=== PATIENT | female | born 1960 | race Caucasian/White ===

== ENCOUNTER 2021-07-24 09:48 | Inpatient (IN) | payer OTHER, SELFPAY ==
--- NOTE | ~2021-07-24 | CT_ITS ---
EXAMINATION: CT SCAN OF THE LEFT HAND WITH CONTRAST CLINICAL INFORMATION: Cat bite. Evaluate for fluid collection. Left hand swelling. COMPARISON: None. TECHNIQUE: CT scan left hand was performed with contrast. 85 mL of Omnipaque 350 given intravenously. Reconstruction imaging performed at the acquisition workstation. DLP: 189 mGy-cm2. FINDINGS: The bones, joints and soft tissues are normal. I do not see a fluid collection. CT/CT hand LT w con IMPRESSION: Normal CT scan of the left hand. I do not see a fluid collection.
--- NOTE | ~2021-07-24 | XR_ITS ---
EXAMINATION: XR HAND, LEFT CLINICAL INFORMATION: Left hand pain status post cat bite. COMPARISON: None TECHNIQUE: PA, lateral, and oblique views of the left hand. FINDINGS: There is no acute fracture or dislocation. The joint spaces are unremarkable. The carpal bones are normally aligned. The distal radius and ulna are intact. Mild soft tissue swelling surrounds the base of the first digit without radiopaque foreign body. XR/XR hand LT 2V IMPRESSION: Mild soft tissue swelling at the base of the first digit without radiopaque foreign body. No acute osseous abnormality.
[2021-07-24 09:51] VITALS: BP 148/51; PULSE 85; RESP 16; TEMP 36.7; O2SAT 95; BMI 28.3
--- NOTE | 2021-07-24 10:18 | ED.SKABFB ---
HPI - Skin/Abscess/Foreign Bdy General Chief complaint: Skin/Abscess/Foreign Body Stated complaint: cat bite - hand infection Time Seen by Provider: 07/24/21 10:07 Source: patient Mode of arrival: ambulatory Limitations: no limitations History of Present Illness HPI narrative: 60-year-old female with a history of left breast cancer status post mastectomy here with reports of left hand swelling, redness and pain. Patient tells me that she was bit by her daughter's cat yesterday on the left hand. She is right hand dominant. She tells me that CaT is up-to-date with her rabies vaccination. The patient was seen and yesterday at outpatient facility. Her tetanus status was updated. She was started on Augmentin. Patient took 2 doses of Augmentin. Today when she woke up she reported increased pain, swelling, streaking up the arm. Patient tells me that she has had subjective fevers, chills and nausea. Related Data Home Medications Medication Instructions Recorded Confirmed amoxicillin 875 mg-potassium 1 tab PO BID 07/24/21 07/24/21 clavulanate 125 mg tablet cholecalciferol (vitamin D3) 25 25 mcg PO DAILY 07/24/21 07/24/21 mcg (1,000 unit) tablet famotidine 20 mg tablet (Pepcid) 20 mg PO DAILY 07/24/21 07/24/21 Allergies Allergy/AdvReac Type Severity Reaction Status Date / Time levofloxacin [From Levaquin] Allergy Rash Verified 07/24/21 10:34 meperidine [From Demerol] Allergy Unknown Verified 07/24/21 10:35 Penicillins Allergy Rash Verified 07/24/21 10:35 Review of Systems Review of Systems: Yes all other systems are reviewed and are negative Constitutional: Constitutional: Reports no additional constitutional complaints, Reports chills, Reports fever(s) (Subjective), Denies headache(s) and Denies weakness Eyes: Eyes: Reports no additional eye complaints and Denies change in vision ENT: Reports system reviewed and no additional complaints, except as documented, Denies dizziness, Denies headache(s), Denies nasal congestion, Denies nasal discharge and Denies neck pain Cardiovascular: Cardiovascular: Reports no additional cardiovascular complaints, Denies chest pain, Denies leg edema and Denies dyspnea Respiratory: Respiratory: Reports no additional respiratory complaints, Denies cough and Denies dyspnea Gastrointestinal: Gastrointestinal: Reports no additional gastrointestinal complaints, Denies abdominal pain, Denies diarrhea, Reports nausea and Denies vomiting Genitourinary: Genitourinary: Reports no additional female genitourinary complaints and Denies urinary incontinence Musculoskeletal: Musculoskeletal: Reports no additional musculoskeletal complaints, Denies back pain, Denies arthralgias, Denies joint swelling, Denies neck pain, Denies numbness and Denies tingling Integumentary/Breasts: Skin/Breast: Reports system reviewed and no additional complaints, except as docu, Reports swelling, Reports erythema and Denies rash Neurologic: Reports system reviewed and no additional complaints, except as documented, Denies Abnormal speech present, Denies dizziness, Denies headache(s), Denies numbness, Denies tingling and Denies weakness PMFSH Past Medical History Attestation statement: The following information was validated with the patient. Source: old records reviewed and nursing notes reviewed Social History Social History Advance Directives: No Advance Directives Information Provided: No Physical Exam Vital Signs: Vital Signs: Last Vital Signs Temp 98.1 F 07/24/21 09:51 Pulse 63 07/24/21 12:45 Resp 12 07/24/21 12:45 BP 116/60 07/24/21 12:45 Pulse Ox 97 07/24/21 12:45 O2 Del Method 07/24/21 12:45 BMI result Body Mass Index 28.3 Const: General: cooperative, healthy appearing, comfortable and no acute distress Orientation/consciousness: patient oriented x3 Limitations: no limitations HEENT: Head: Yes normal to inspection Ears: hearing grossly normal bilaterally General nose exam: Normal external nose present Face and sinus: Yes normal facial exam Mouth: Normal oral and palatal mucosa present Throat: Yes posterior oropharynx normal Eyes: General: appearance normal, both eyes and all related structures Pupils: Equal, round and reactive pupils present Neck: Neck: Yes normal visual inspection Chest: Chest palpation & inspection: normal inspection of the chest Resp: Effort & Inspection: normal respiratory effort Auscultation: clear to auscultation bilaterally Cardio: Rate: regular rate Rhythm: regular rhythm Peripheral pulses: Peripheral pulses 2+ throughout GI: Inspection: Yes normal to inspection Palpation (GI): Soft to palpation and nontender Auscultation: normal bowel sounds Back/Spine/Pelvis: Thoracic/Lumbar Spine: thoracic and lumbar spine normal to inspection Skin: General skin exam: no rashes or lesions noted Neuro: General: patient oriented x3, no focal motor deficits and normal sensation to monofilament Cranial nerves: Yes Equal, round and reactive pupils present Cognition (Neuro): normal cognition Speech: No Abnormal speech present Gait exam (Neuro): Normal gait present Motor exam (neuro): 5/5 motor strength present throughout Extrem: Other: There are abrasions noted to the dorsal and volar aspect of the left hand. There is warmth, redness, swelling of the hand. There is streaking up the volar aspect of the left arm. There is pain over the left axilla with no obvious lymphadenopathy. There is pain with passive extension of the 2nd and 3rd digits on the left hand. General: Yes normal to inspection Course Course Course Narrative: This is a 60-year-old female who had a cat bite to left hand yesterday. She has taken 2 doses of oral Augmentin but overnight has had tactile temperatures, chills, nausea and increasing swelling with redness and streaking up the arm today. She also has pain with passive extension of the 2nd and 3rd digits on the left hand. Patient has obvious cellulitis. There is also concern for tenosynovitis of the hand. Therefore I will obtain labs including blood cultures and lactic acid. Patient has a listed allergy to penicillin and describes this as a rash as a child. She has taken Augmentin with no difficulty. Therefore I have ordered Zosyn. Anticipate admission after discussion with orthopedic hand. At this time infection is suspected. Antibiotics ordered Reevaluation(s) Reevaluation #1: Reviewed labs which show leukocytosis, elevated CRP. X-ray of hand shows no acute foreign body I discussed the case with orthopedics [facility]. They will follow the patient during admission. Recommend continuing IV antibiotics. Call out to medicine to discuss for admission Time: 11:30 Reevaluation #2: Spoke to Dr. Siu. He accepted admission Time: 11:45 MDM - Skin/Abscess/Foreign Bdy MDM Narrative Medical decision making narrative: Tenosynovitis Differential Diagnosis Differential diagnosis: Likely cellulitis Medical Records Attestation: I reviewed the patient's medical records. Lab Data Attestation: I reviewed the patient's lab results. Result diagrams: 07/24/21 10:56 07/24/21 10:56 Labs: Lab Results 07/24/21 07/24/21 07/24/21 Range/Units 10:56 10:56 10:56 WBC 11.3 H (4.8-10.8) X10*3/uL RBC 4.50 (4.20-5.50) X10*6/uL Hgb 13.2 (12.0-16.0) g/dl Hct 39.2 (37.0-47.0) % MCV 87.1 (80.0-98.0) fL MCH 29.3 (27.0-33.0) pg MCHC 33.7 (31.0-35.0) g/dl RDW 13.1 (11.0-16.0) % Plt Count 215 (160-400) X10*3/uL MPV 10.8 (9.4-12.3) fL Immature Gran % (Auto) 0.3 (0.0-0.4) % Neut % (Auto) 69.2 (45-73) % Lymph % (Auto) 19.7 L (20-40) % [place] % (Auto) 10.2 (2-11) % Eos % (Auto) 0.3 (0-4) % Baso % (Auto) 0.3 (0-2) % Lymph # (Auto) 2.2 (1.2-4.9) X10*3/uL [place] # (Auto) 1.2 (0.1-1.2) X10*3/uL Eos # (Auto) 0.0 (0.0-0.4) X10*3/uL Baso # (Auto) 0.0 (0.0-0.2) X10*3/uL Abs Immat Gran (auto) 0.03 (0.00-0.03) X10*3/uL Absolute Neuts (auto) 7.8 (2.0-8.3) x10*3/uL Absolute Nucleated RBC 0.000 (0.0-0.012) X10*3/uL Nucleated RBC % (auto) 0.0 (0.0-0.2) /100WBC ESR 14 (0-20) MM/HR Sodium 139 (135-145) mmol/L Potassium 3.9 (3.3-5.1) mmol/L Chloride 106 (96-108) mmol/L Carbon Dioxide 23 (22-29) mmol/L Anion Gap 14 (12-20) BUN 12 (9-16) mg/dL Creatinine 0.86 (0.5-1.4) mg/dL Estim Creat Clear Calc 69.7 Estimated GFR > 60 Random Glucose 103 (60-115) mg/dL Lactic Acid (0.5-2.0) mmol/L Calcium 9.3 (8.4-10.2) mg/dL Total Bilirubin 0.6 (0.0-1.0) mg/dL Direct Bilirubin 0.2 (0.0-0.5) mg/dL AST 16 (5-31) U/L ALT 13 (0-31) U/L Alkaline Phosphatase 60 (39-117) U/L C-Reactive Protein 9.43 H (< or = 0.50) mg/dL Total Protein 7.0 (6.5-8.0) g/dL Albumin 4.3 (3.5-5.0) g/dL COVID-19 ([facility]) (Negative) COVID-19 Clin Com 07/24/21 07/24/21 Range/Units 10:56 10:56 WBC (4.8-10.8) X10*3/uL RBC (4.20-5.50) X10*6/uL Hgb (12.0-16.0) g/dl Hct (37.0-47.0) % MCV (80.0-98.0) fL MCH (27.0-33.0) pg MCHC (31.0-35.0) g/dl RDW (11.0-16.0) % Plt Count (160-400) X10*3/uL MPV (9.4-12.3) fL Immature Gran % (Auto) (0.0-0.4) % Neut % (Auto) (45-73) % Lymph % (Auto) (20-40) % [place] % (Auto) (2-11) % Eos % (Auto) (0-4) % Baso % (Auto) (0-2) % Lymph # (Auto) (1.2-4.9) X10*3/uL [place] # (Auto) (0.1-1.2) X10*3/uL Eos # (Auto) (0.0-0.4) X10*3/uL Baso # (Auto) (0.0-0.2) X10*3/uL Abs Immat Gran (auto) (0.00-0.03) X10*3/uL Absolute Neuts (auto) (2.0-8.3) x10*3/uL Absolute Nucleated RBC (0.0-0.012) X10*3/uL Nucleated RBC % (auto) (0.0-0.2) /100WBC ESR (0-20) MM/HR Sodium (135-145) mmol/L Potassium (3.3-5.1) mmol/L Chloride (96-108) mmol/L Carbon Dioxide (22-29) mmol/L Anion Gap (12-20) BUN (9-16) mg/dL Creatinine (0.5-1.4) mg/dL Estim Creat Clear Calc Estimated GFR Random Glucose (60-115) mg/dL Lactic Acid 0.6 (0.5-2.0) mmol/L Calcium (8.4-10.2) mg/dL Total Bilirubin (0.0-1.0) mg/dL Direct Bilirubin (0.0-0.5) mg/dL AST (5-31) U/L ALT (0-31) U/L Alkaline Phosphatase (39-117) U/L C-Reactive Protein (< or = 0.50) mg/dL Total Protein (6.5-8.0) g/dL Albumin (3.5-5.0) g/dL COVID-19 ([facility]) Negative (Negative) COVID-19 Clin Com See Note Imaging Data hand x-ray: Attestation: I personally reviewed and interpreted this imaging study as follows: Radiologist's impression: FINDINGS: There is no acute fracture or dislocation. The joint spaces are unremarkable. The carpal bones are normally aligned. The distal radius and ulna are intact. Mild soft tissue swelling surrounds the base of the first digit without radiopaque foreign body. XR/XR hand LT 2V IMPRESSION: Mild soft tissue swelling at the base of the first digit without radiopaque foreign body. No acute osseous abnormality. Discharge Plan Discharge Clinical Impression: Cellulitis Patient Disposition: Admitted As Inpatient
--- NOTE | 2021-07-24 10:48 | PHA.MEDREC ---
Pharmacy Consult ? Medication Reconciliation Pharmacy has completed the medication reconciliation.
--- NOTE | 2021-07-24 10:49 | PC.NURSE ---
pt moved to room 12 in ed for admission and cellulitis work up.
[2021-07-24 11:03] LABS: MANUAL DIFF FLAG NO
[2021-07-24 11:07] LABS: Basophils Percent Auto 0.3 % (0-2); Eosinophils Percent Auto 0.3 % (0-4); Hematocrit 39.2 % (37.0-47.0); Hemoglobin 13.2 g/dl (12.0-16.0); Imm Gran Abs Auto 0.03 X10*3/uL (0.00-0.03); Imm Gran Pct Auto 0.3 % (0.0-0.4); Lymphocytes Absolute Auto 2.2 X10*3/uL (1.2-4.9); Lymphocytes Percent Auto 19.7 % (20-40); Mean Corpuscular HGB Conc 33.7 g/dl (31.0-35.0); Mean Corpuscular Hemoglobin 29.3 pg (27.0-33.0); Mean Corpuscular Volume 87.1 fL (80.0-98.0); Mean Platelet Volume 10.8 fL (9.4-12.3); Monocytes Absolute Auto 1.2 X10*3/uL (0.1-1.2); Monocytes Percent Auto 10.2 % (2-11); Neutrophils Absolute Auto 7.8 x10*3/uL (2.0-8.3); Neutrophils Percent Auto 69.2 % (45-73); Platelet Count 215 X10*3/uL (160-400); Red Cell Distribution Width 13.1 % (11.0-16.0); White Blood Count 11.3 X10*3/uL (4.8-10.8)
[2021-07-24 11:16] LABS: Lactic Acid 0.6 mmol/L (0.5-2.0)
[2021-07-24 11:21] LABS: Alanine Aminotransferase 13 U/L (0-31); Albumin Level 4.3 g/dL (3.5-5.0); Alkaline Phosphatase 60 U/L (39-117); Anion Gap 14 (12-20); Aspartate Amino Transferase 16 U/L (5-31); Bilirubin Direct 0.2 mg/dL (0.0-0.5); Bilirubin Total 0.6 mg/dL (0.0-1.0); Blood Urea Nitrogen 12 mg/dL (9-16); C Reactive Protein 9.43 mg/dL (< or = 0.50); Calcium 9.3 mg/dL (8.4-10.2); Carbon Dioxide 23 mmol/L (22-29); Chloride 106 mmol/L (96-108); Creatinine Clr Calc Pharmacy 69.7; Estimated Glomerular Filt Rate > 60; Glucose Random 103 mg/dL (60-115); Potassium 3.9 mmol/L (3.3-5.1); Sodium 139 mmol/L (135-145)
[2021-07-24] MEDS: Ketorolac Tromethamine 30 MG/ML VIAL IVPUSH (11:22)
[2021-07-24] MEDS: Piperacillin Sodium/Tazobactam 3.375 GM in 0.9 % Sodium Chloride 50 ML IV ×3 (11:22→22:19)
[2021-07-24] MEDS: 0.9 % Sodium Chloride 1,000 ML 999 ML IV (11:23)
[2021-07-24 11:39] LABS: COVID-19 Test Negative (Negative); IDNOW Serial# 16C4AD1C
[2021-07-24 11:50] VITALS: BP 114/61; PULSE 64; RESP 13; O2SAT 95
[2021-07-24 11:50] LABS: Erythrocyte Sedimentation Rate 14 MM/HR (0-20)
[2021-07-24 11:52] VITALS: BP 114/61; PULSE 64; RESP 13; O2SAT 95
--- NOTE | 2021-07-24 12:05 | PHA.PROG ---
Addendum entered by Yamilex Da Silva ashley 07/24/21 14:20: DISREGARD TROUGH REPORTED OUT AT 1312. TT'S DOSE WAS HUNG AT 1230, VALUE IS NOT ACCURATE Original Note: Admission Date/Time: July 24, 2021 11:46 Indication: Skin Weight in k.843 kg Adjusted body weight in Kg: [place] body weight in Kg: Obesity Dosing Indication % IBW: Serum Creatinine - Last 168 Hours 07/24/21 10:56 Creatinine 0.86 Estimated CrCl and GFR - Last 168 Hours 07/24/21 10:56 Estim Creat Clear Calc 69.7 Estimated GFR > 60 Vancomycin Loading Dose: N/A Current Vancomycin Dosing Regimen: 1000mg Q12H Vancomycin Monitoring using AUC goal of 400 - 600 range with trough as surrogate marker: 570mg/L Date and Time for next Vancomycin Level to be drawn: 07/25/21 @2200 Pharmacist Comments on Vancomycin Plan: Dr. Siu will be monitoring as well and requested the 1000mg Q12H; will continue to monitor renal Vancomycin dosing will take advantage of [employer] as a clinical decision support tool that uses Bayesian modeling to calculate individual patient's pharmacokinetic parameters and forecast the patient's drug concentration time course with the target goal AUC 24 range of 400 - 600 mg/L/hr.
--- NOTE | 2021-07-24 12:15 | P.HPHOSP_ITS ---
History of Present Illness Date of Service: 07/24/21 Chief Complaint: cat bite 60-year-old female presents with pain and redness in her left hand this traveling upper arm secondary to a cat bite 48 hours prior to presentation. States she was seen in urgent care yesterday and received a dose of Augmentin however overnight became feverish and hand was worse this morning. She presented to the ER for further evaluation. ER evaluation demonstrated a white count of 11.3 and negative x-ray. She will be admitted for IV antibiotics secondary to failing outpatient therapies Review of Systems Review of Systems: denies chest pain Denies shortness of breath Denies nausea vomiting diarrhea Admits to fevers to 101 overnight PMFSH Social History Advance Directives: No Advance Directives Information Provided: No Meds Allergies Allergy/AdvReac Type Severity Reaction Status Date / Time levofloxacin [From Levaquin] Allergy Rash Verified 07/24/21 10:34 meperidine [From Demerol] Allergy Unknown Verified 07/24/21 10:35 Penicillins Allergy Rash Verified 07/24/21 10:35 Active Medications: Current Medications Acetaminophen (Acetaminophen 325 Mg Tablet) 650 mg PO Q6H PRN PRN Reason: Pain, Mild (Pain Scale 1-3) Enoxaparin Sodium (Enoxaparin Sodium 40 Mg/0.4 Ml Syringe) 40 mg SUBCUT Q24H KRIS Famotidine (Famotidine 20 Mg Tablet) 20 mg PO DAILY [facility] Piperacillin Sod/Tazobactam (Sod 3.375 gm/ Sodium Chloride) 50 mls @ 100 mls/hr IV Q6H KRIS Vancomycin HCl 1,000 mg/ (Sodium Chloride) 270 mls @ 270 mls/hr IV Q12H KRIS Melatonin (Melatonin 3 Mg Tablet) 3 mg PO BEDTIME PRN PRN Reason: Insomnia Oxycodone HCl (Oxycodone Hcl Immed Release 5 Mg Tablet) 5 mg PO Q6H PRN PRN Reason: Pain, Severe (Pain Scale 7-10) Pharmacy Consult (Consult Rx Perform Med Rec) 1 each MISCELLANE ONCE PRN PRN Reason: Consult order Sodium Chloride (0.9 % Sodium Chloride Flush 3 Ml Syringe) 3 ml IVFLUSH QSHIFT KRIS Vitamin D (Cholecalciferol (Vitamin D3) 25 Mcg Tablet) 25 mcg PO DAILY KRIS Home Medications Medication Instructions Recorded Confirmed Last Taken Type amoxicillin 875 mg-potassium 1 tab PO BID 07/24/21 07/24/21 07/24/21 History clavulanate 125 mg tablet cholecalciferol (vitamin D3) 25 25 mcg PO DAILY 07/24/21 07/24/21 07/23/21 History mcg (1,000 unit) tablet famotidine 20 mg tablet (Pepcid) 20 mg PO DAILY 07/24/21 07/24/21 07/23/21 History Physical Exam Vital Signs and Narrative: Vital Signs: Last Vital Signs Temp 98.1 F 07/24/21 09:51 Pulse 64 07/24/21 11:52 Resp 13 07/24/21 11:52 BP 114/61 07/24/21 11:52 Pulse Ox 95 07/24/21 11:52 O2 Del Method 07/24/21 11:52 BMI result Body Mass Index 28.3 Const: Other: awake alert uncomfortable lying in the stretcher Resp: Other: clear to auscultation bilaterally no rales rhonchi or wheezes Cardio: Other: no S4; positive S1-S2; no S3 murmurs rubs or gallops GI: Other: soft nontender nondistended with normoactive bowel sounds Extrem: Other: dorsum left hand erythematous warm to touch and edematous with erythema extending up the mid dorsal aspect of the left forearm into the antecubital fossa Results Labs CBC and Chem 7: 07/24/21 10:56 07/24/21 10:56 Labs: Laboratory Results - last 24 hr 07/24/21 07/24/21 07/24/21 10:56 10:56 10:56 MCV 87.1 MCH 29.3 MCHC 33.7 RDW 13.1 Plt Count 215 MPV 10.8 Immature Gran % (Auto) 0.3 Neut % (Auto) 69.2 Lymph % (Auto) 19.7 L [place] % (Auto) 10.2 Eos % (Auto) 0.3 Baso % (Auto) 0.3 Lymph # (Auto) 2.2 [place] # (Auto) 1.2 Eos # (Auto) 0.0 Baso # (Auto) 0.0 Abs Immat Gran (auto) 0.03 Absolute Neuts (auto) 7.8 Absolute Nucleated RBC 0.000 Nucleated RBC % (auto) 0.0 ESR 14 Anion Gap 14 Estim Creat Clear Calc 69.7 Estimated GFR > 60 Random Glucose 103 Lactic Acid Calcium 9.3 Total Bilirubin 0.6 Direct Bilirubin 0.2 AST 16 ALT 13 Alkaline Phosphatase 60 C-Reactive Protein 9.43 H Total Protein 7.0 Albumin 4.3 COVID-19 ([facility]) COVID-19 Clin Com 07/24/21 07/24/21 10:56 10:56 MCV MCH MCHC RDW Plt Count MPV Immature Gran % (Auto) Neut % (Auto) Lymph % (Auto) [place] % (Auto) Eos % (Auto) Baso % (Auto) Lymph # (Auto) [place] # (Auto) Eos # (Auto) Baso # (Auto) Abs Immat Gran (auto) Absolute Neuts (auto) Absolute Nucleated RBC Nucleated RBC % (auto) ESR Anion Gap Estim Creat Clear Calc Estimated GFR Random Glucose Lactic Acid 0.6 Calcium Total Bilirubin Direct Bilirubin AST ALT Alkaline Phosphatase C-Reactive Protein Total Protein Albumin COVID-19 ([facility]) Negative COVID-19 Clin Com See Note Imaging Radiologist's Impressions: Impressions Hand X-Ray 07/24/21 10:23 IMPRESSION: Mild soft tissue swelling at the base of the first digit without radiopaque foreign body. No acute osseous abnormality. Assessment and Plan (1) Cellulitis: Status: Acute Plan 60-year-old female sustained a cat bite approximately 48 hours ago; seen at urgent care yesterday given oral antibiotics however pain and redness have worsened. patient to be admitted for IV antibiotics 1. Cellulitis (cat bite) - IV Zosyn/vancomycin - serial CBCs - blood cultures pending - oxycodone for pain Requires 2 midnights going forward for IV antibiotics to treat cat bite cellulitis that has failed outpatient therapy. This cannot be achieved in a lesser acute setting Quality Stroke Does the patient have a stroke diagnosis?: No VTE Prior VTE?: No VTE Risk Level:: Medical - moderate - high VTE Device Contraindication: Treatment Not Indicated VTE Drug Contraindication: N/A - Med Ordered
[2021-07-24] MEDS: Enoxaparin Sodium 40 MG/0.4 ML SYRINGE SUBCUT (12:28)
[2021-07-24] MEDS: vancomycin HCL 1,000 MG in 0.9 % Sodium Chloride 250 ML 270 MG IV (12:29)
[2021-07-24] MEDS: oxyCODONE HCl Immed Release 5 MG TABLET PO ×2 (12:37→22:26)
[2021-07-24 12:45] VITALS: BP 116/60; PULSE 63; RESP 12; O2SAT 97
[2021-07-24 13:54] LABS: Vancomycin Trough 27.8 mcg/mL (10.0-20.0)
[2021-07-24] MEDS: 0.9 % Sodium Chloride Flush 3 ML SYRINGE IVFLUSH ×2 (17:30→20:55)
[2021-07-24 19:49] VITALS: BP 122/78; PULSE 68; RESP 18; TEMP 36.9; O2SAT 97
[2021-07-24 23:14] VITALS: BP 110/65; PULSE 79; RESP 18; TEMP 37.1; O2SAT 99
[2021-07-25] MEDS: vancomycin HCL 1,000 MG in 0.9 % Sodium Chloride 250 ML 270 MG IV ×3 (00:03→22:58)
[2021-07-25] MEDS: diphenhydrAMINE HCL 25 MG TABLET PO ×3 (01:39→23:06)
[2021-07-25 03:15] VITALS: BP 104/52; PULSE 66; RESP 18; TEMP 37.2; O2SAT 99
[2021-07-25] MEDS: Piperacillin Sodium/Tazobactam 3.375 GM in 0.9 % Sodium Chloride 50 ML IV ×4 (04:06→22:29)
[2021-07-25 06:48] LABS: MANUAL DIFF FLAG NO
[2021-07-25 06:53] LABS: Basophils Percent Auto 0.4 % (0-2); Eosinophils Absolute Auto 0.1 X10*3/uL (0.0-0.4); Eosinophils Percent Auto 1.6 % (0-4); Hematocrit 34.4 % (37.0-47.0); Hemoglobin 11.4 g/dl (12.0-16.0); Imm Gran Abs Auto 0.02 X10*3/uL (0.00-0.03); Imm Gran Pct Auto 0.3 % (0.0-0.4); Lymphocytes Absolute Auto 1.8 X10*3/uL (1.2-4.9); Lymphocytes Percent Auto 24.7 % (20-40); Mean Corpuscular HGB Conc 33.1 g/dl (31.0-35.0); Mean Corpuscular Hemoglobin 29.6 pg (27.0-33.0); Mean Corpuscular Volume 89.4 fL (80.0-98.0); Mean Platelet Volume 11.2 fL (9.4-12.3); Monocytes Absolute Auto 0.7 X10*3/uL (0.1-1.2); Monocytes Percent Auto 9.5 % (2-11); Neutrophils Absolute Auto 4.7 x10*3/uL (2.0-8.3); Neutrophils Percent Auto 63.5 % (45-73); Platelet Count 168 X10*3/uL (160-400); Red Blood Count 3.85 X10*6/uL (4.20-5.50); Red Cell Distribution Width 13.1 % (11.0-16.0); White Blood Count 7.4 X10*3/uL (4.8-10.8)
[2021-07-25 07:26] LABS: Alanine Aminotransferase 16 U/L (0-31); Albumin Level 3.3 g/dL (3.5-5.0); Alkaline Phosphatase 55 U/L (39-117); Anion Gap 11 (12-20); Aspartate Amino Transferase 20 U/L (5-31); Bilirubin Total 0.6 mg/dL (0.0-1.0); Blood Urea Nitrogen 11 mg/dL (9-16); Calcium 8.1 mg/dL (8.4-10.2); Carbon Dioxide 22 mmol/L (22-29); Chloride 109 mmol/L (96-108); Creatinine Clr Calc Pharmacy 67.4; Estimated Glomerular Filt Rate > 60; Glucose Fasting 97 mg/dL (60-99); Sodium 138 mmol/L (135-145); Total Protein 5.5 g/dL (6.5-8.0)
[2021-07-25 07:47] VITALS: BP 104/53; PULSE 69; RESP 18; TEMP 36.6; O2SAT 95
[2021-07-25] MEDS: Famotidine 20 MG TABLET PO (09:00)
[2021-07-25] MEDS: Cholecalciferol (Vitamin D3) 25 MCG TABLET PO (09:00)
[2021-07-25] MEDS: 0.9 % Sodium Chloride Flush 3 ML SYRINGE IVFLUSH ×3 (09:04→22:33)
--- NOTE | 2021-07-25 09:30 | P.PNIM_ITS ---
Subjective Subjective Date of Service: 07/25/21 Interval History: some improvement overnight however left hand still red warm and painful to move Review of Systems denies chest pain Denies shortness of breath Denies nausea vomiting diarrhea Admits to fevers to 101 overnight Physical Exam Vital Signs: Vital Signs: Last Vital Signs Temp 97.8 F 07/25/21 07:47 Pulse 69 07/25/21 07:47 Resp 18 07/25/21 07:47 BP 104/53 L 07/25/21 07:47 Pulse Ox 95 07/25/21 07:47 O2 Del Method 07/25/21 07:47 BMI result Body Mass Index 28.3 Const: Other: awake alert uncomfortable lying in the stretcher Resp: Other: clear to auscultation bilaterally no rales rhonchi or wheezes Cardio: Other: no S4; positive S1-S2; no S3 murmurs rubs or gallops GI: Other: soft nontender nondistended with normoactive bowel sounds Extrem: Other: dorsum left hand less erythematous; warm to touch. erythema of the forearm improved Objective Data Active Medications Acetaminophen (Acetaminophen 325 Mg Tablet) 650 mg PO Q6H PRN PRN Reason: Pain, Mild (Pain Scale 1-3) Diphenhydramine HCl (Diphenhydramine Hcl 25 Mg Tablet) 25 mg PO Q6H PRN PRN Reason: Itching Last Admin: 07/25/21 01:39 Dose: 25 mg Documented By: KERRIE Enoxaparin Sodium (Enoxaparin Sodium 40 Mg/0.4 Ml Syringe) 40 mg SUBCUT Q24H [facility] Last Admin: 07/24/21 12:28 Dose: 40 mg Documented By: TAMERA Famotidine (Famotidine 20 Mg Tablet) 20 mg PO DAILY [facility] Last Admin: 07/25/21 09:00 Dose: 20 mg Documented By: KAYLENE Piperacillin Sod/Tazobactam (Sod 3.375 gm/ Sodium Chloride) 50 mls @ 100 mls/hr IV Q6H [facility] Last Infusion: 07/25/21 04:40 Dose: 0 mls/hr Documented By: KERRIE Vancomycin HCl 1,000 mg/ (Sodium Chloride) 270 mls @ 270 mls/hr IV Q12H [facility] Last Infusion: 07/25/21 01:07 Dose: 0 mls/hr Documented By: KERRIE Melatonin (Melatonin 3 Mg Tablet) 3 mg PO BEDTIME PRN PRN Reason: Insomnia Oxycodone HCl (Oxycodone Hcl Immed Release 5 Mg Tablet) 5 mg PO Q6H PRN PRN Reason: Pain, Severe (Pain Scale 7-10) Last Admin: 07/24/21 22:26 Dose: 5 mg Documented By: KERRIE Pharmacy Consult (Consult Rx Perform Med Rec) 1 each MISCELLANE ONCE PRN PRN Reason: Consult order Sodium Chloride (0.9 % Sodium Chloride Flush 3 Ml Syringe) 3 ml IVFLUSH QSHIFT [facility] Last Admin: 07/25/21 09:04 Dose: 3 ml Documented By: KAYLENE Vitamin D (Cholecalciferol (Vitamin D3) 25 Mcg Tablet) 25 mcg PO DAILY [facility] Last Admin: 07/25/21 09:00 Dose: 25 mcg Documented By: KAYLENE Labs CBC & Chem 7: 07/25/21 06:18 07/25/21 06:18 Labs: Laboratory Results - last 24 hr 07/24/21 07/24/21 07/24/21 10:56 10:56 10:56 MCV 87.1 MCH 29.3 MCHC 33.7 RDW 13.1 Plt Count 215 MPV 10.8 Immature Gran % (Auto) 0.3 Neut % (Auto) 69.2 Lymph % (Auto) 19.7 L [place] % (Auto) 10.2 Eos % (Auto) 0.3 Baso % (Auto) 0.3 Lymph # (Auto) 2.2 [place] # (Auto) 1.2 Eos # (Auto) 0.0 Baso # (Auto) 0.0 Abs Immat Gran (auto) 0.03 Absolute Neuts (auto) 7.8 Absolute Nucleated RBC 0.000 Nucleated RBC % (auto) 0.0 ESR 14 Anion Gap 14 Estim Creat Clear Calc 69.7 Estimated GFR > 60 Random Glucose 103 Fasting Glucose Lactic Acid Calcium 9.3 Total Bilirubin 0.6 Direct Bilirubin 0.2 AST 16 ALT 13 Alkaline Phosphatase 60 C-Reactive Protein 9.43 H Total Protein 7.0 Albumin 4.3 Vancomycin Trough COVID-19 ([facility]) COVID-19 Clin Com 06/11/22 06/11/22 06/11/22 10:56 10:56 13:12 MCV MCH MCHC RDW Plt Count MPV Immature Gran % (Auto) Neut % (Auto) Lymph % (Auto) [place] % (Auto) Eos % (Auto) Baso % (Auto) Lymph # (Auto) [place] # (Auto) Eos # (Auto) Baso # (Auto) Abs Immat Gran (auto) Absolute Neuts (auto) Absolute Nucleated RBC Nucleated RBC % (auto) ESR Anion Gap Estim Creat Clear Calc Estimated GFR Random Glucose Fasting Glucose Lactic Acid 0.6 Calcium Total Bilirubin Direct Bilirubin AST ALT Alkaline Phosphatase C-Reactive Protein Total Protein Albumin Vancomycin Trough 27.8 H* COVID-19 ([facility]) Negative COVID-19 Clin Com See Note 07/25/21 07/25/21 06:18 06:18 MCV 89.4 MCH 29.6 MCHC 33.1 RDW 13.1 Plt Count 168 MPV 11.2 Immature Gran % (Auto) 0.3 Neut % (Auto) 63.5 Lymph % (Auto) 24.7 [place] % (Auto) 9.5 Eos % (Auto) 1.6 Baso % (Auto) 0.4 Lymph # (Auto) 1.8 [place] # (Auto) 0.7 Eos # (Auto) 0.1 Baso # (Auto) 0.0 Abs Immat Gran (auto) 0.02 Absolute Neuts (auto) 4.7 Absolute Nucleated RBC 0.000 Nucleated RBC % (auto) 0.0 ESR Anion Gap 11 L Estim Creat Clear Calc 67.4 Estimated GFR > 60 Random Glucose Fasting Glucose 97 Lactic Acid Calcium 8.1 L D Total Bilirubin 0.6 Direct Bilirubin AST 20 ALT 16 Alkaline Phosphatase 55 C-Reactive Protein Total Protein 5.5 L D Albumin 3.3 L D Vancomycin Trough COVID-19 ([facility]) COVID-19 Clin Com Assessment and Plan (1) Cellulitis: Status: Acute Plan 60-year-old female sustained a cat bite approximately 48 hours ago; seen at urgent care yesterday given oral antibiotics however pain and redness have worsened. patient to be admitted for IV antibiotics 1. Cellulitis (cat bite) - IV Zosyn/vancomycin - serial CBCs - blood cultures pending - oxycodone for pain full code Lovenox Ongoing hospitalization for IV antibiotics to treat cat bite cellulitis that has failed outpatient therapy. Quality Stroke Does the patient have a stroke diagnosis?: No VTE Prior VTE?: No VTE Risk Level:: Medical - moderate - high VTE Device Contraindication: Treatment Not Indicated VTE Drug Contraindication: N/A - Med Ordered
--- NOTE | 2021-07-25 09:32 | PM.CNOR ---
History of Present Illness [facility] Consult date: 07/25/21 Chief complaint: cellulitis Narrative: Ms. Peres Is a 60-year-old [id number] female presented to the emergency department yesterday after sustaining a cat bite the day before. She reports that this was her daughter's cat and the cat is up-to-date with rabies vaccine. After the initial bite the patient presented to an urgent care where she was placed on Augmentin. She took 2 doses but the following morning she woke up with increased pain, redness and streaking up the arm. She presented to the emergency department where she was evaluated and placed on IV antibiotics. Upon speaking with the patient this morning she states that although her swelling has continued she has noted a decrease in pain and is able to move all fingers. She also reports that the redness that was streaking up her arm yesterday, although still present, is beginning to subside. Review of Systems Review of Systems: Yes all other systems are reviewed and are negative PMFSH Social History Social History Household Members: Spouse Housing: House Do you presently have visiting nurse or other home services: No Patient Tobacco Use Status: Never used Tobacco Meds Allergies Allergy/AdvReac Type Severity Reaction Status Date / Time levofloxacin [From Levaquin] Allergy Rash Verified 07/24/21 10:34 meperidine [From Demerol] Allergy Unknown Verified 07/24/21 10:35 Penicillins Allergy Rash Verified 07/24/21 10:35 Active Medications: Current Medications Acetaminophen (Acetaminophen 325 Mg Tablet) 650 mg PO Q6H PRN PRN Reason: Pain, Mild (Pain Scale 1-3) Diphenhydramine HCl (Diphenhydramine Hcl 25 Mg Tablet) 25 mg PO Q6H PRN PRN Reason: Itching Last Admin: 07/25/21 01:39 Dose: 25 mg Enoxaparin Sodium (Enoxaparin Sodium 40 Mg/0.4 Ml Syringe) 40 mg SUBCUT Q24H [facility] Last Admin: 07/24/21 12:28 Dose: 40 mg Famotidine (Famotidine 20 Mg Tablet) 20 mg PO DAILY [facility] Last Admin: 07/25/21 09:00 Dose: 20 mg Piperacillin Sod/Tazobactam (Sod 3.375 gm/ Sodium Chloride) 50 mls @ 100 mls/hr IV Q6H [facility] Last Infusion: 07/25/21 04:40 Dose: Infused Vancomycin HCl 1,000 mg/ (Sodium Chloride) 270 mls @ 270 mls/hr IV Q12H [facility] Last Infusion: 07/25/21 01:07 Dose: Infused Melatonin (Melatonin 3 Mg Tablet) 3 mg PO BEDTIME PRN PRN Reason: Insomnia Oxycodone HCl (Oxycodone Hcl Immed Release 5 Mg Tablet) 5 mg PO Q6H PRN PRN Reason: Pain, Severe (Pain Scale 7-10) Last Admin: 07/24/21 22:26 Dose: 5 mg Pharmacy Consult (Consult Rx Perform Med Rec) 1 each MISCELLANE ONCE PRN PRN Reason: Consult order Sodium Chloride (0.9 % Sodium Chloride Flush 3 Ml Syringe) 3 ml IVFLUSH QSHIFT [facility] Last Admin: 07/25/21 09:04 Dose: 3 ml Vitamin D (Cholecalciferol (Vitamin D3) 25 Mcg Tablet) 25 mcg PO DAILY [facility] Last Admin: 07/25/21 09:00 Dose: 25 mcg Home Medications Medication Instructions Recorded Confirmed Last Taken Type amoxicillin 875 mg-potassium 1 tab PO BID 07/24/21 07/24/21 07/24/21 History clavulanate 125 mg tablet cholecalciferol (vitamin D3) 25 25 mcg PO DAILY 07/24/21 07/24/21 07/23/21 History mcg (1,000 unit) tablet famotidine 20 mg tablet (Pepcid) 20 mg PO DAILY 07/24/21 07/24/21 07/23/21 History Physical Exam Vital Signs: Vital Signs: Last Vital Signs Temp 97.8 F 07/25/21 07:47 Pulse 69 07/25/21 07:47 Resp 18 07/25/21 07:47 BP 104/53 L 07/25/21 07:47 Pulse Ox 95 07/25/21 07:47 O2 Del Method 07/25/21 07:47 BMI result Body Mass Index 28.3 Const: General: cooperative and no acute distress Orientation/consciousness: patient oriented x3 Resp: Effort & Inspection: normal respiratory effort and able to speak in complete sentences Cardio: Peripheral pulses: Peripheral pulses 2+ throughout Skin: General skin exam: no rashes or lesions noted Neuro: General: patient oriented x3 Extrem: Other: Left hand small bite also noted over the of dorsum and volar aspect of the hand. Dorsally there are small puncture wounds over the thumb and 1st webspace. on the volar aspect there are small puncture wounds located over the palm near the 1st web space and just proximal to the MCP. there is no active drainage. Erythema is still present but has drastically improved since yesterday. Tenderness to palpation over the thenar space. Patient is able to flex and extend all digits quite well. She is lacking about 2 cm from making a closed fist. Sensation is intact. Capillary refill is brisk. Radial pulse intact. Results Labs Result Diagrams: 07/25/21 06:18 07/25/21 06:18 Labs: Abnormal lab results 07/24/21 07/24/21 07/24/21 Range/Units 10:56 10:56 13:12 WBC 11.3 H (4.8-10.8) X10*3/uL RBC (4.20-5.50) X10*6/uL Hgb (12.0-16.0) g/dl Hct (37.0-47.0) % Lymph % (Auto) 19.7 L (20-40) % Chloride (96-108) mmol/L Anion Gap (12-20) Calcium (8.4-10.2) mg/dL C-Reactive Protein 9.43 H (< or = 0.50) mg/dL Total Protein (6.5-8.0) g/dL Albumin (3.5-5.0) g/dL Vancomycin Trough 27.8 H* (10.0-20.0) mcg/mL 07/25/21 07/25/21 Range/Units 06:18 06:18 WBC (4.8-10.8) X10*3/uL RBC 3.85 L (4.20-5.50) X10*6/uL Hgb 11.4 L (12.0-16.0) g/dl Hct 34.4 L (37.0-47.0) % Lymph % (Auto) (20-40) % Chloride 109 H (96-108) mmol/L Anion Gap 11 L (12-20) Calcium 8.1 L D (8.4-10.2) mg/dL C-Reactive Protein (< or = 0.50) mg/dL Total Protein 5.5 L D (6.5-8.0) g/dL Albumin 3.3 L D (3.5-5.0) g/dL Vancomycin Trough (10.0-20.0) mcg/mL H & H 07/24/21 07/25/21 Range/Units 10:56 06:18 Hgb 13.2 11.4 L (12.0-16.0) g/dl Hct 39.2 34.4 L (37.0-47.0) % All other labs normal. Assessment and Plan (1) Cellulitis: Status: Acute Plan Ms. Peres is a 60 yo gkxkj-juof-edmzxlal female who presented to the emergency department yesterday after being bit by her daughter's cat on 06/22/2021. She presented to the urgent care where she was given Augmentin and had taken 2 doses. Upon awakening in the morning patient had worsening symptoms and presented to the emergency department. She has now been on IV antibiotics for roughly 24 hours and has noted a decrease in pain and erythema. Patient is able to move all digits. She does have pain over the thenar aspect but no palpable abscess on exam. Continue IV antibiotics and monitor for resolution of symptoms no surgical intervention at this time. Orthopedics will continue to follow. Procedures Date of Service Date of Service: 07/25/21
[2021-07-25 10:58] VITALS: BP 115/58; PULSE 66; RESP 18; TEMP 36.7; O2SAT 95
[2021-07-25] MEDS: Enoxaparin Sodium 40 MG/0.4 ML SYRINGE SUBCUT (11:48)
[2021-07-25] MEDS: ondansetron HCL 4 MG/2 ML VIAL IVPUSH (12:36)
[2021-07-25 15:44] VITALS: BP 115/53; PULSE 63; RESP 18; TEMP 37.2; O2SAT 98
--- NOTE | 2021-07-25 16:20 | MHC.CM.PN ---
PT REPORTS SHE LIVES WITH HER AND IS INDEPENDENT WITH ALL CARE PT DENIES USE OF DME OR HOME SERVICES PT REPORTS SHE HAS A HCP NAMING HER HER AGENT PCP DELMAR ELIAS PT REPORTS HE IS COVID-19 VACCINATED [facility] RIGHTS DELIVERED CURRENT DC PLAN IS HOME WITH NO SERVICES FAMILY TO TRANSPORT
[2021-07-25 19:25] VITALS: BP 120/53; PULSE 83; RESP 18; TEMP 37.2; O2SAT 94
--- NOTE | 2021-07-25 22:24 | HE.PHANOTE ---
Vancomycin Dosing Addendum Trough today 12. Renal function is stable. Recommend to continue same regimen vancomycin 1000 mg Q12H. Expected AUC 537 with a trough of 17.4. Trough for to be drawn after 3 doses on 07/27 @ 1000. Pharmacy will continue to monitor renal function and per last note, Dr. Siu is monitoring as well. Zulema Pandey, PharmD
[2021-07-25 23:33] VITALS: BP 119/57; PULSE 68; RESP 18; TEMP 36.9; O2SAT 95
[2021-07-26 03:14] VITALS: BP 135/55; PULSE 69; RESP 18; TEMP 37.3; O2SAT 97
[2021-07-26] MEDS: Piperacillin Sodium/Tazobactam 3.375 GM in 0.9 % Sodium Chloride 50 ML IV ×2 (05:04→11:19)
[2021-07-26 06:11] LABS: MANUAL DIFF FLAG NO
[2021-07-26 06:19] LABS: Basophils Percent Auto 0.4 % (0-2); Eosinophils Absolute Auto 0.3 X10*3/uL (0.0-0.4); Eosinophils Percent Auto 4.4 % (0-4); Hematocrit 35.1 % (37.0-47.0); Hemoglobin 11.5 g/dl (12.0-16.0); Imm Gran Abs Auto 0.03 X10*3/uL (0.00-0.03); Imm Gran Pct Auto 0.4 % (0.0-0.4); Lymphocytes Absolute Auto 1.8 X10*3/uL (1.2-4.9); Lymphocytes Percent Auto 25.5 % (20-40); Mean Corpuscular HGB Conc 32.8 g/dl (31.0-35.0); Mean Corpuscular Hemoglobin 29.2 pg (27.0-33.0); Mean Corpuscular Volume 89.1 fL (80.0-98.0); Monocytes Absolute Auto 0.8 X10*3/uL (0.1-1.2); Monocytes Percent Auto 10.9 % (2-11); Neutrophils Absolute Auto 4.1 x10*3/uL (2.0-8.3); Neutrophils Percent Auto 58.4 % (45-73); Platelet Count 187 X10*3/uL (160-400); Red Blood Count 3.94 X10*6/uL (4.20-5.50); Red Cell Distribution Width 12.8 % (11.0-16.0); White Blood Count 7.1 X10*3/uL (4.8-10.8)
[2021-07-26 07:07] LABS: Alanine Aminotransferase 30 U/L (0-31); Albumin Level 3.4 g/dL (3.5-5.0); Alkaline Phosphatase 68 U/L (39-117); Anion Gap 11 (12-20); Aspartate Amino Transferase 27 U/L (5-31); Bilirubin Total 0.5 mg/dL (0.0-1.0); Blood Urea Nitrogen 10 mg/dL (9-16); Calcium 8.4 mg/dL (8.4-10.2); Carbon Dioxide 25 mmol/L (22-29); Chloride 108 mmol/L (96-108); Creatinine Clr Calc Pharmacy 61.8; Estimated Glomerular Filt Rate 59; Glucose Fasting 103 mg/dL (60-99); Potassium 4.1 mmol/L (3.3-5.1); Sodium 140 mmol/L (135-145); Total Protein 5.7 g/dL (6.5-8.0)
[2021-07-26 07:28] VITALS: BP 108/53; PULSE 57; RESP 18; TEMP 36.4; O2SAT 96
--- NOTE | 2021-07-26 08:15 | PM.PNORT ---
Subjective Subjective Date of Service: 07/26/21 Interval history: Patient is resting comfortably in bed. No overnight events. Pain is well managed. Patient states that she continues to eel improvement. However, over the dorsal and volar aspect of the thnar space/first web space she continues to have extreme tenderness to touch. Physical Exam Vital Signs: Vital Signs: Last Vital Signs Temp 97.5 F 07/26/21 07:28 Pulse 57 07/26/21 07:28 Resp 18 07/26/21 07:28 BP 108/53 L 07/26/21 07:28 Pulse Ox 96 07/26/21 07:28 O2 Del Method 07/26/21 07:28 BMI result Body Mass Index 28.3 Const: General: cooperative, healthy appearing and no acute distress Orientation/consciousness: patient oriented x3 Resp: Effort & Inspection: normal respiratory effort and able to speak in complete sentences Cardio: Rate: regular rate Peripheral pulses: Peripheral pulses 2+ throughout GI: Palpation (GI): Soft to palpation Skin: General skin exam: no rashes or lesions noted Lesions: no lesions Rashes: no rashes Neuro: General: patient oriented x3 Extrem: Other: Left hand small bite wound noted over the of dorsum and volar aspect of the hand. Dorsally there are small puncture wounds over the thumb and 1st webspace. On the volar aspect there are small puncture wounds located over the palm near the 1st web space and over the MCP. There is no active drainage. Erythema coninues to improve. Cntinues to have extreme tenderness to palpation over the thenar space and first web space. Patient is able to flex and extend all digits quite well. She is nable to make a closed fist. Sensation is intact. Capillary refill is brisk. Radial pulse intact. Procedures Date of Service Date of Service: 07/26/21 Progress Note: A&P Assessment and plan (1) Cellulitis: Status: Acute Assessment and Plan: The patient has now been on IV antibiotics for roughly 48 hours and has noted a decrease in pain and erythema.? Patient is able to move all digits.? She Continues to have pain over the thenar aspect but no palpable abscess on exam.? I have spoken to Dr. Beverly who states that she will evaluate the patient today to determine if she feels the patient would benefit from surgical intervention. She will remain NPO pending Dr. Beverly evaluation. Time Spent With Patient Time: Total time spent is greater than 50% in coordination of care (as documented) at patient's floor/unit and/or counseling patient: Quality Stroke Does the patient have a stroke diagnosis?: No VTE Prior VTE?: No VTE Risk Level:: Medical - moderate - high VTE Device Contraindication: Treatment Not Indicated VTE Drug Contraindication: N/A - Med Ordered
[2021-07-26] MEDS: Cholecalciferol (Vitamin D3) 25 MCG TABLET PO (08:32)
[2021-07-26] MEDS: Famotidine 20 MG TABLET PO (08:32)
[2021-07-26] MEDS: 0.9 % Sodium Chloride Flush 3 ML SYRINGE IVFLUSH (08:32)
[2021-07-26] MEDS: iohexoL 350 MG/ML 100 ML INFUS..BTL 85 ML IV (11:14)
[2021-07-26 11:27] VITALS: BP 113/52; PULSE 60; RESP 18; TEMP 36.2; O2SAT 95
[2021-07-26] MEDS: vancomycin HCL 1,000 MG in 0.9 % Sodium Chloride 250 ML 270 MG IV (12:06)
[2021-07-26] MEDS: diphenhydrAMINE HCL 25 MG TABLET PO (12:09)
--- NOTE | 2021-07-26 13:29 | PM.DS ---
DS: Providers Provider Date of Service: 07/26/21 Date of admission: 07/24/21 11:46 Date of discharge: 07/26/21 Primary care physician: Carmen Azul MD Consults: 07/24/21 11:33 Consult to Orthopedics Stat Consulting Provider: Leo Luu Reason for consultation: left hand cellulitis, ?tenosynovitis DS: Diagnosis Discharge Diagnosis (1) Cellulitis: Status: Acute DS: Summary Hospital Course Hospital Course: 60-year-old female presents with cat bite to the left hand. States started on Augmentin but after 2nd dose developed fever and chills which prompted her to seek evaluation in ER the next morning. Left hand and forearm erythematous and warm to touch on admission. Given vancomycin and Zosyn times 48 hours with marked improvement. Still with considerable tenderness in the thumb and 1st finger webspace; CT scan of hand with IV contrast failed to demonstrate fluid collection. At this point in time patient wishes to be discharged home on oral antibiotics; medically acceptable. She will be discharged to complete a course of doxycycline and Augmentin. She will follow-up with her PCP in 1 week. She is instructed to return for fever chills or worsening pain Time Spent with Patient Time attestation: Total time spent providing and/or coordinating discharge services: Discharge coordination time: Greater than 30 minutes Quality: Safe Use of Opioids Does Pt have an Active Cancer Diagnosis on the Problem List?: No Quality: Stroke Does the patient have a stroke diagnosis?: No Physical Exam Vital Signs: Vital Signs: Last Vital Signs Temp 97.2 F 07/26/21 11:27 Pulse 60 07/26/21 11:27 Resp 18 07/26/21 11:27 BP 113/52 L 07/26/21 11:27 Pulse Ox 95 07/26/21 11:27 O2 Del Method 07/26/21 11:27 BMI result Body Mass Index 28.3 Const: Other: awake alert uncomfortable lying in the stretcher Resp: Other: clear to auscultation bilaterally no rales rhonchi or wheezes Cardio: Other: no S4; positive S1-S2; no S3 murmurs rubs or gallops GI: Other: soft nontender nondistended with normoactive bowel sounds Extrem: Other: dorsum left hand with mild erythema webspace between thumb and 1st finger; erythema to forearm and dorsum of the hand resolved DS: Data Data Completed and Pending Labs on day of discharge: Laboratory Results - last 24 hr 07/25/21 07/26/21 07/26/21 21:46 05:30 05:30 WBC 7.1 RBC 3.94 L Hgb 11.5 L Hct 35.1 L MCV 89.1 MCH 29.2 MCHC 32.8 RDW 12.8 Plt Count 187 MPV 11.0 Immature Gran % (Auto) 0.4 Neut % (Auto) 58.4 Lymph % (Auto) 25.5 [place] % (Auto) 10.9 Eos % (Auto) 4.4 H Baso % (Auto) 0.4 Lymph # (Auto) 1.8 [place] # (Auto) 0.8 Eos # (Auto) 0.3 Baso # (Auto) 0.0 Abs Immat Gran (auto) 0.03 Absolute Neuts (auto) 4.1 Absolute Nucleated RBC 0.000 Nucleated RBC % (auto) 0.0 Sodium 140 Potassium 4.1 Chloride 108 Carbon Dioxide 25 Anion Gap 11 L BUN 10 Creatinine 0.97 Estim Creat Clear Calc 61.8 Estimated GFR 59 Fasting Glucose 103 H Calcium 8.4 Total Bilirubin 0.5 AST 27 ALT 30 Alkaline Phosphatase 68 D Total Protein 5.7 L Albumin 3.4 L Vancomycin Trough 12.0 Preliminary micro results at discharge 07/24/21 10:56 Blood Culture - Preliminary Blood - Venous No growth after 48 hours. 07/24/21 10:56 Blood Culture - Preliminary Blood - Venous No growth after 48 hours. Discharge Plan Discharge Patient Disposition: Home, Self-Care Discharge Diagnosis: cellulitis Referrals: Carmen Azul MD [Primary Care Provider] - 1 Week Discharge Medications: New amoxicillin-pot clavulanate 875-125 mg tablet 1 tab PO BID Qty: 20 0RF doxycycline hyclate 100 mg tablet 100 mg PO BID 10 Days Qty: 20 0RF Continued famotidine [Pepcid] 20 mg Tablet 20 mg PO DAILY cholecalciferol (vitamin D3) 25 mcg (1,000 unit) Tablet 25 mcg PO DAILY Discontinued amoxicillin-pot clavulanate 875-125 mg tablet 1 tab PO BID Discharge Orders: Discharge Order (Routine); Ordered 07/26/21 Ordered By: Po Siu Diet: advance to usual diet Activity on Discharge: As tolerated Stand Alone Forms: Patient Portal Discharge page Care Plan Goals: complete course of Augmentin along with doxycycline as ordered Health Concerns: return for increased pain fever chills Plan of Treatment: ibuprofen for discomfort Assessment: see discharge summary
--- NOTE | 2021-07-26 13:31 | MHC.CM.PN ---
nurse xcase aerospace manager ntoe electronic medical rcord reviewed along with case diasucssed with staff gabino and the hospitlsit , met with patient and her she was awaiting to be seen by the orthoppedics and have a ct scan of her hansd . spoke with hsoptialist and later patient again she will be discharged home today no services discharge plan home no services pcp dr yamel العراقي follow up for post hospitsl discharge and orhtopeidc hand specialist per discharge recomendations listed transportation family
--- NOTE | 2021-07-26 13:42 | P.CONOP_ITS ---
History of Present Illness HPI Consult date: 07/26/21 Chief complaint: cellulitis Narrative: The patient is a 60-year-old woman who was bitten by a cat on the left hand on 07/23/2021. She reportedly went to her primary care physician's office where she was given a prescription for Keflex but told not to take it unless she became symptomatic. By the next day she had significant pain swelling erythema in the left hand and was seen at our emergency department where radiographs were taken and she was admitted for cellulitis. She has been on IV antibiotics and has noted considerable improvement in her left hand though she still has tenderness in the area of the bite wounds at the base of the 1st web space. She denies having problems with numbness and tingling. She says that the redness that had been going up to her shoulder has mostly improved, and that she now has better use of her left hand with good flexion extension of the fingers. PMFSH Social History Social History Household Members: Spouse Housing: House Do you presently have visiting nurse or other home services: No Patient Tobacco Use Status: Never used Tobacco service: No Current occupational status: unemployed Meds Allergies Allergy/AdvReac Type Severity Reaction Status Date / Time levofloxacin [From Levaquin] Allergy Rash Verified 07/24/21 10:34 meperidine [From Demerol] Allergy Unknown Verified 07/24/21 10:35 Penicillins Allergy Rash Verified 07/24/21 10:35 Active Medications: Current Medications Acetaminophen (Acetaminophen 325 Mg Tablet) 650 mg PO Q6H PRN PRN Reason: Pain, Mild (Pain Scale 1-3) Diphenhydramine HCl (Diphenhydramine Hcl 25 Mg Tablet) 25 mg PO Q6H PRN PRN Reason: Itching Last Admin: 07/26/21 12:09 Dose: 25 mg Enoxaparin Sodium (Enoxaparin Sodium 40 Mg/0.4 Ml Syringe) 40 mg SUBCUT Q24H KRIS Last Admin: 07/26/21 12:06 Dose: Not Given Famotidine (Famotidine 20 Mg Tablet) 20 mg PO DAILY [facility] Last Admin: 07/26/21 08:32 Dose: 20 mg Piperacillin Sod/Tazobactam (Sod 3.375 gm/ Sodium Chloride) 50 mls @ 100 mls/hr IV Q6H [facility] Last Infusion: 07/26/21 11:49 Dose: Infused Vancomycin HCl 1,000 mg/ (Sodium Chloride) 270 mls @ 270 mls/hr IV Q12H [facility] Last Infusion: 07/26/21 13:06 Dose: Infused Melatonin (Melatonin 3 Mg Tablet) 3 mg PO BEDTIME PRN PRN Reason: Insomnia Ondansetron HCl (Ondansetron Hcl 4 Mg/2 Ml Vial) 4 mg IVPUSH Q8H PRN PRN Reason: Nausea and Vomiting Last Admin: 07/25/21 12:36 Dose: 4 mg Oxycodone HCl (Oxycodone Hcl Immed Release 5 Mg Tablet) 5 mg PO Q6H PRN PRN Reason: Pain, Severe (Pain Scale 7-10) Last Admin: 07/24/21 22:26 Dose: 5 mg Pharmacy Consult (Consult Rx Perform Med Rec) 1 each MISCELLANE ONCE PRN PRN Reason: Consult order Sodium Chloride (0.9 % Sodium Chloride Flush 3 Ml Syringe) 3 ml IVFLUSH QSHIFT [facility] Last Admin: 07/26/21 08:32 Dose: 3 ml Vitamin D (Cholecalciferol (Vitamin D3) 25 Mcg Tablet) 25 mcg PO DAILY [facility] Last Admin: 07/26/21 08:32 Dose: 25 mcg Home Medications Medication Instructions Recorded Confirmed Last Taken Type cholecalciferol (vitamin D3) 25 25 mcg PO DAILY 07/24/21 07/24/21 07/23/21 History mcg (1,000 unit) tablet famotidine 20 mg tablet (Pepcid) 20 mg PO DAILY 07/24/21 07/24/21 07/23/21 H istory Physical Exam Vital Signs: Vital Signs: Last Vital Signs Temp 97.2 F 07/26/21 11:27 Pulse 60 07/26/21 11:27 Resp 18 07/26/21 11:27 BP 113/52 L 07/26/21 11:27 Pulse Ox 95 07/26/21 11:27 O2 Del Method 07/26/21 11:27 BMI result Body Mass Index 28.3 Const: General: cooperative, healthy appearing and no acute distress Orientation/consciousness: oriented to person and oriented to place HEENT: Head: Yes normocephalic and Yes atraumatic Eyes: EOM: EOMs intact bilaterally Resp: Effort & Inspection: normal respiratory effort and able to speak in complete sentences Cardio: Jugular venous distension: no JVD Skin: General skin exam: turgor normal Rashes: no rashes Neuro: General: oriented to person and oriented to place Extrem: Other: Evaluation of left Upper Extremity: Neuro: Median, ulnar, radial nerves motor and sensory grossly intact. Vascular: Cap refill brisk. She has resolving lymphangitis seen on the volar aspect of her forearm. It is barely visible at this point. She still has some swelling and mild erythema in the left hand, but reports that is significantly improved. She has bite wounds particularly about the 1st web space but also on the ulnar aspect of the hand. There is no drainage. She can weakly make a fist and extend her digits. She has good active flexion and extension of the thumb without significant discomfort. She is most tender to palpation about the 1st web space but the 1st web space is soft with mild swelling. I do not appreciate a clear abscess. The palmar aspect of her entire hand is soft with some resolving ecchymosis. Radiographs: Radiographs and CT scan were reviewed by me today and are negative for fracture, foreign body, and the CT scan is negative for abscess. Psych: Appearance: grossly normal Affect: normal affect Attitude: cooperative Results Labs Result Diagrams: 07/26/21 05:30 07/26/21 05:30 Labs: Abnormal lab results 07/26/21 07/26/21 Range/Units 05:30 05:30 RBC 3.94 L (4.20-5.50) X10*6/uL Hgb 11.5 L (12.0-16.0) g/dl Hct 35.1 L (37.0-47.0) % Eos % (Auto) 4.4 H (0-4) % Anion Gap 11 L (12-20) Fasting Glucose 103 H (60-99) mg/dL Total Protein 5.7 L (6.5-8.0) g/dL Albumin 3.4 L (3.5-5.0) g/dL H & H 07/24/21 07/25/21 07/26/21 Range/Units 10:56 06:18 05:30 Hgb 13.2 11.4 L 11.5 L (12.0-16.0) g/dl Hct 39.2 34.4 L 35.1 L (37.0-47.0) % All other labs normal. Assessment and Plan (1) Cat bite of left hand: Status: Acute (2) Cellulitis: Status: Acute Plan Assessment and plan: 1. Left hand cat bite and cellulitis Date of bite 07/23/2021 She appears to be improving well on IV antibiotics. The worst area today appears to be in the 1st web space, but this area is soft and she has good Hand range of motion. CT scan also negative for abscess. No operative indications today. Continue antibiotics, read consult as needed. Procedures Date of Service Date of Service: 07/26/21
== END 2021-07-26 15:17 | disposition home or self-care (01) | DRG 603 ==
LOC: HO.ED 11:35 → HO.EDOVER 12:00 → HO.S3 17:07
PROVIDERS: Nurse Practitioner Family; Admitting Provider Hospitalist; Emergency Provider Emergency Medicine; PCP Family Medicine; Visit Provider Hospitalist
DX: L03.114 Cellulitis of left upper limb (principal); S61.432A Puncture wound without foreign body of left hand, initial encounter; W55.01XA Bitten by cat, initial encounter; Z20.822 Contact with and (suspected) exposure to COVID-19; Z85.3 Personal history of malignant neoplasm of breast; Z90.12 Acquired absence of left breast and nipple; Z88.0 Allergy status to penicillin; Z88.8 Allergy status to other drugs, medicaments and biological substances; Z79.899 Other long term (current) drug therapy
CPT/HCPCS: 36415; 73120; 73201; 80048; 80053; 80076; 80202; 83605; 85025; 85652; 86140; 87040; 87635; 96361; 96365; 96375; 99218; 99285; J1650; J1885; J2405; J2543; J3370; Q0163; Q9967

== ENCOUNTER → 2021-07-28 08:22 | Outpatient (BNVA) | payer OTHER, SELFPAY | PROVIDERS: PCP Family Medicine; Visit Provider Orthopaedic Surgery | DX: L02.512 Cutaneous abscess of left hand (principal) | CPT/HCPCS: 99212 ==

== ENCOUNTER 2021-07-29 06:50 | Day surgery (SDC) | payer OTHER, SELFPAY ==
[2021-07-29 07:03] VITALS: BMI 28.3
[2021-07-29 07:16] VITALS: BP 110/56; PULSE 74; RESP 16; TEMP 36.1; O2SAT 95
[2021-07-29] MEDS: Lactated Ringers 1,000 ML 50 ML IVCONT (07:25)
[2021-07-29 09:45] VITALS: BP 118/62; PULSE 57; RESP 16; TEMP 36.6; O2SAT 97
--- NOTE | 2021-07-29 09:51 | MHC.SHP ---
Pre-Procedural Eval Section A Date of Service: 07/29/21 The patient is an INPATIENT: No Changes since office visit: No Cold of Flu in the past 2 weeks, No New Medical Problems, No Changes in Medication and No Patient answered all questions The History & Physical has been completed within 30 days and I have reviewed it.: Yes Section B Chief Complaint: abscess hand Allergies: Allergies Allergy/AdvReac Type Severity Reaction Status Date / Time levofloxacin [From Levaquin] Allergy Rash Verified 07/28/21 08:39 meperidine [From Demerol] Allergy Rash Verified 07/29/21 07:03 Penicillins Allergy Rash Verified 07/28/21 08:39 Plan I have reviewed the history and physical and performed a pertinent physical examination on my patient. No changes have occurred unless specified.
--- NOTE | 2021-07-29 09:52 | W.PM.OPN ---
Operative Note Operative Note Date of Service: 07/29/21 Narrative: Operative Note Narrative: Preop diagnosis: left hand abscess, 1st web space status post cap bite Postop diagnosis: Same Procedure: 1. Left hand abscess I and D Surgeon: Holly Beverly MD Anesthesia: MAC Findings: small amount of purulence Implants: none Tourniquet time: 0 minutes EBL: 5.0 ml Specimen: none Drains: None Complications: None Disposition: Brought to the recovery room in stable condition Plan: Follow-up in about 5 days for wound check, suture removal Indications: The patient is a 60 year old woman with a left dorsal hand abscess over the 1st web space following a cat bite. The risks and benefits of operative treatment, including but not limited to risk of damage to blood vessels, nerves, tendons, infection, recurrence, persistent pain or numbness, incomplete resolution of preoperative symptoms, or need for further surgery were discussed with the patient and they wished to proceed with surgery. Procedure: Once consent was obtained patient was brought back to the operating suite and placed in the operating table in a supine position. Anesthesia was administered by the anesthesia team. A tourniquet was applied to the proximal aspect of the left upper extremity and the limb was prepped and draped in a standard surgical fashion. The tourniquet was not inflated during the case. The small abscess was located in the dorsal aspect of the left 1st webspace. I infiltrated proximal and about the abscess with some 0.25% plain Marcaine. I then made a 1 cm longitudinal incision centered directly over the bite wound which was draining a small amount of purulent material. Incision was made through the skin to the subcuaneous ttissue. I then used some tenotomy scissors to Dissect down into the subcutaneous tissue. The wound was then debrided and copiously irrigated with normal saline. Only a scant amount of purulent material had been found. A single 5 0 nylon suture was placed to loosely approximate the skin. A sterile dressing was then applied. The patient appears to have tolerated the procedure well and with no complications. All digits were well vascularized conclusion of the case.
--- NOTE | 2021-07-29 09:59 | HO.ANESPROP2 ---
HPI - Anesthesia Eval Consult details Narrative: 60 female presenting for incision and drainage of the left hand PMFSH Active Problems Active Problems: All Active Problems (Updated 07/28/21 @ 09:12 by Holly Beverly MD) Cellulitis (Acute) Cat bite of left hand (Acute) Abscess of left hand (Acute) Family History Family history of problems with anesthesia: No Surgical History Surgical History H/O left mastectomy History of Problems with Anesthesia: No Social History Social History Household Members: Spouse Housing: House Do you presently have visiting nurse or other home services: No Patient Tobacco Use Status: Never used Tobacco Use of substances other than those prescribed or required for medical reasons: No Are you DNR?: No Advance Directives: No Advance Directives Information Provided: Yes Recently lost weight without trying: No Nutrition Risks: No Nutritional Risk service: No Current occupational status: employed Current occupation: math educator/ rt [employer] Meds Allergies Allergy/AdvReac Type Severity Reaction Status Date / Time levofloxacin [From Levaquin] Allergy Rash Verified 07/28/21 08:39 meperidine [From Demerol] Allergy Rash Verified 07/29/21 07:03 Penicillins Allergy Rash Verified 07/28/21 08:39 Active Medications: Current Medications Acetaminophen (Acetaminophen 325 Mg Tablet) 975 mg PO ONCE PRN PRN Reason: Pain, Mild (Pain Scale 1-3) Lactated Ringer's (Lr) 1,000 mls @ 50 mls/hr IVCONT .Q20H KRIS Last Admin: 07/29/21 07:25 Dose: 50 mls/hr Ondansetron HCl (Ondansetron Hcl 4 Mg/2 Ml Vial) 4 mg IVPUSH ONCE PRN PRN Reason: Nausea and Vomiting Oxycodone HCl (Oxycodone Hcl Immed Release 5 Mg Tablet) 5 mg PO ONCE PRN PRN Reason: Pain, Severe (Pain Scale 7-10) Home Medications Medication Instructions Recorded Confirmed Last Taken Type cholecalciferol (vitamin D3) 25 25 mcg PO DAILY 07/24/21 07/24/21 07/23/21 History mcg (1,000 unit) tablet famotidine 20 mg tablet (Pepcid) 20 mg PO DAILY 07/24/21 07/24/21 07/23/21 History Exam Exam Date and Time: July 29, 2021 0959 Height,Weight and Vital Signs: Height 5 ft 4 in Weight 165 lb Last Vital Signs Temp 98 F 07/29/21 09:45 Pulse 57 07/29/21 09:45 Resp 16 07/29/21 09:45 BP 118/62 07/29/21 09:45 Pulse Ox 97 07/29/21 09:45 O2 Del Method 07/29/21 09:45 Airway Mallampati Class: II TM Dist: >3cm Neck ROM: Full Loose/Missing/Broken Teeth: Yes Assessment and Plan Assessment Anesthesia Assessment: Anesthesia Plan Discussed and Chart Reviewed Final Anesthetic Review Family History of Problems with Anesthesia: No History of Problems with Anesthesia: No NPO: Yes ASA Class: II Final Preanesthetic Review: No Changes in Pt Med Stat, Meds/Allgs Chart Reviewed, Consent Obtained/Reviewed and Anes Risks/Benef Reviewed Patient Risk: Low Procedure Risk: Low Anesthetic Plan Anesthetic Plan: MAC: Disposition: Standard PACU
[2021-07-29 10:00] VITALS: BP 114/60; PULSE 65; RESP 16; TEMP 36.6; O2SAT 99
== END 2021-07-29 11:00 | disposition home or self-care (01) ==
PROVIDERS: PCP Family Medicine; Visit Provider Orthopaedic Surgery
PROC: (CPT 10060; principal; 2021-07-29 08:40)
DX: L02.512 Cutaneous abscess of left hand (principal); L03.114 Cellulitis of left upper limb; M79.645 Pain in left finger(s); R20.0 Anesthesia of skin; W55.01XD Bitten by cat, subsequent encounter; Z85.3 Personal history of malignant neoplasm of breast; Z88.0 Allergy status to penicillin; Z88.1 Allergy status to other antibiotic agents; Z88.8 Allergy status to other drugs, medicaments and biological substances
CPT/HCPCS: 10060; J3010